=== PATIENT | male | born 1985 | race Caucasian/White ===

== ENCOUNTER 2016-05-18 23:21 | Emergency (ER) | payer OTHER ==
[~2016-05-18] VITALS: Ht 165.1 cm; Wt 70.2 kg
[2016-05-19 00:01] LABS: EOSINOPHIL (%) 0.4 % (0-5); HEMATOCRIT 44.9 % (38.0-50.0); LYMPHOCYTE COUNT 1.6 K/uL (1.0-2.8); MCHC 36.1 G/DL (30.0-36.0); MEAN PLAT.VOLUME 10.9 uM^3 (9.0-12.4); MONOCYTE (%) 8.2 % (3-12); MONOCYTE COUNT 0.4 K/uL (0-0.8); NEUTROPHIL (%) 57.4 % (45-76); NEUTROPHIL COUNT 2.7 K/uL (1.8-6.4); PLATELET COUNT 154 K/uL (156-360); RBC DIS.WIDTH-CV 12.1 % (11.8-14.6); RBC DIS.WIDTH-SD 37.6 % (39-53); RED BLOOD COUNT 5.22 M/uL (4.00-5.50); WHITE BLOOD COUNT 4.7 K/uL (4.1-10.2)
[2016-05-19 00:11] LABS: CHLORIDE 108 mEq/L (99-109); POTASSIUM 3.8 mEq/L (3.7-5.4); SODIUM 146 mEq/L (136-147)
[2016-05-19 00:13] LABS: GLUCOSE 107 mg/dL (70-99)
[2016-05-19 00:15] LABS: ANION GAP 14 MEQ/L (2-14); TOTAL BILIRUBIN 0.1 mg/dL (0.0-1.0)
[2016-05-19 00:16] LABS: SERUM ETHYL ALCOHOL 151 mg/dL
[2016-05-19 00:17] LABS: GFR ESTIMATE (CALCULATED) > 59 mL/min/
[2016-05-19 00:18] LABS: ALKALINE PHOSPHATASE 80 IU/L (3-129)
[2016-05-19 00:19] LABS: UREA NITROGEN (BUN) 5 mg/dL (9-23)
[2016-05-19 00:20] LABS: SALICYLATE < 5.0 MG/DL (15-30)
[2016-05-19 02:25] LABS: ADD MIUA? NO; BILIRUBIN NEGATIVE; BLOOD NEGATIVE; COLOR YELLOW ((YELLOW)); GLUCOSE (STRIP) NEGATIVE; KETONES NEGATIVE; LEUKOCYTES NEGATIVE; NITRITE NEGATIVE; PROTEIN (STRIP) NEGATIVE; SPECIFIC GRAVITY 1.011 (1.000-1.030); UCUL ADDED? NO; UROBILINOGEN 0.2 MG/DL (0.2-1.0)
[2016-05-19 02:45] LABS: AMPHETAMINE NEGATIVE (500 ng/mL); BARBITURATES NEGATIVE (200 ng/mL); BENZODIAZEPINES NEGATIVE (150 ng/mL); COCAINE NEGATIVE (150 ng/mL); INTERNAL CONTROLS VALID? YES; METHADONE NEGATIVE (200 ng/mL); METHAMPHETAMINE NEGATIVE (500 ng/mL); OPIATES (MORPHINE) NEGATIVE (100 ng/mL); OXYCODONE NEGATIVE (100 ng/mL); PHENCYCLIDINE NEGATIVE (25 ng/mL); PROPOXYPHENE NEGATIVE (300 ng/mL); THC CANNABINOIDS NEGATIVE (50 ng/mL); TRICYCLIC ANTIDEPRESSANTS NEGATIVE (300 ng/mL)
[2016-05-19 03:20] LABS: CHLORIDE 112 mEq/L (99-109); POTASSIUM 3.5 mEq/L (3.7-5.4); SODIUM 145 mEq/L (136-147)
[2016-05-19 03:22] LABS: GLUCOSE 134 mg/dL (70-99)
[2016-05-19 03:23] LABS: ANION GAP 11 MEQ/L (2-14)
[2016-05-19 03:24] LABS: TOTAL BILIRUBIN 0.1 mg/dL (0.0-1.0)
[2016-05-19 03:25] LABS: ALKALINE PHOSPHATASE 62 IU/L (3-129)
[2016-05-19 03:26] LABS: GFR ESTIMATE (CALCULATED) > 59 mL/min/
[2016-05-19 03:27] LABS: UREA NITROGEN (BUN) 6 mg/dL (9-23)
[2016-05-19 04:00] VITALS: BP 108/64
== END 2016-05-19 04:12 ==
LOC: EDBD 23:21 → EME 23:21
PROVIDERS: Emergency Medicine
DX: T39.312A Poisoning by propionic acid derivatives, intentional self-harm, initial encounter (principal); S00.83XA Contusion of other part of head, initial encounter; S50.02XA Contusion of left elbow, initial encounter; F10.129 Alcohol abuse with intoxication, unspecified; Z87.891 Personal history of nicotine dependence; Y04.8XXA Assault by other bodily force, initial encounter; Y92.143 Cell of prison as the place of occurrence of the external cause; F19.10 Other psychoactive substance abuse, uncomplicated
CPT/HCPCS: 70450; 70486; 71010; 73080; 80053; 81003; 85025; 93005; 99281; 99285; C9113; G0480; J2405; J7030; S0028